=== PATIENT | female | born 1990 | race Caucasian/White ===

== ENCOUNTER 2020-03-04 11:17 | Emergency (ER) | payer OTHER ==
[~2020-03-04] VITALS: Ht 157.5 cm; Wt 53.7 kg
[2020-03-04 12:12] LABS: BASO % 0.2 % (0.0-1.0); EOS # 0.1 10^3/uL (0.0-0.5); EOS % 0.8 % (0.0-3.0); HEMATOCRIT 41.5 % (36.0-47.0); HEMOGLOBIN 13.9 g/dl (12.0-15.5); LYMPH # 1.7 10^3/uL (1.5-5.0); MEAN CORPUSCULAR HEMOGLOBIN 30.9 pg (27.0-33.0); MEAN CORPUSCULAR HGB CONC 33.5 g/dl (32.0-36.5); MEAN CORPUSCULAR VOLUME 92.2 fl (80.0-96.0); MONO # 0.5 10^3/uL (0.0-0.8); MONO % 5.5 % (0.0-5.0); NEUTROPHILS % 75.3 % (36.0-66.0); PLATELET COUNT, AUTOMATED 201 10^3/uL (150-450); WHITE BLOOD COUNT 9.2 10^3/uL (4.0-10.0)
[2020-03-04 13:04] LABS: BLOOD UREA NITROGEN 7 MG/DL (7-18); CARBON DIOXIDE LEVEL 26 MEQ/L (21-32); CHLORIDE LEVEL 103 MEQ/L (98-107); CREATININE FOR GFR 0.67 MG/DL (0.55-1.30); GLOMERULAR FILTRATION RATE > 60.0 (>60); GLUCOSE, FASTING 85 MG/DL (70-100); HCG, SERUM QUANTITATIVE 129892 MIU/ML; POTASSIUM SERUM 4.2 MEQ/L (3.5-5.1); SODIUM LEVEL 134 MEQ/L (136-145)
[2020-03-04] MEDS ORDERED: KEFL500C17 PO (13:29)
[2020-03-04 13:39] VITALS: BP 112/79
--- NOTE | 2020-03-04 16:08 | REP ---
FIRST TRIMESTER ULTRASOUND: Real-time sonographic evaluation of the pelvis performed utilizing transabdominal technique. There is a single living intrauterine gestation. The estimated gestational age is 10 weeks 3 days based on crown-rump length of 35 mm, EDC 09/27/2020. heart rate is 179 beats per minute. There is no subchorionic hemorrhage. Ovaries are normal in size and echotexture with no mass or torsion. There is no free fluid. Electronically Signed by Nick Stafford MD 03/04/2020 07:52 P
== END 2020-03-04 13:40 | disposition home or self-care (01) ==
LOC: M ED 11:17
DX: O23.40 Unspecified infection of urinary tract in pregnancy, unspecified trimester (principal); R82.71 Bacteriuria; Z3A.10 10 weeks gestation of pregnancy

== ENCOUNTER 2020-05-22 18:31 | Emergency (ER) | payer BC, OTHER ==
[~2020-05-22] VITALS: Ht 157.5 cm; Wt 54.3 kg
[~2020-05-22 18:31] MED LIST: KEFL500C17 PO
[2020-05-22 18:33] VITALS: BP 108/72
[2020-05-22 21:59] LABS: HCG, SERUM QUALITATIVE POSITIVE (NEGATIVE)
[2020-05-22 22:00] LABS: ALBUMIN 2.6 GM/DL (3.2-5.2); ALT/SGPT 8 U/L (12-78); BILIRUBIN,DIRECT 0.1 MG/DL (0.0-0.2); BILIRUBIN,TOTAL 0.3 MG/DL (0.2-1.0); BLOOD UREA NITROGEN 5 MG/DL (7-18); CALCIUM LEVEL 8.2 MG/DL (8.5-10.1); CARBON DIOXIDE LEVEL 27 MEQ/L (21-32); CHLORIDE LEVEL 106 MEQ/L (98-107); CREATININE FOR GFR 0.52 MG/DL (0.55-1.30); GLOMERULAR FILTRATION RATE > 60.0 (>60); GLUCOSE, FASTING 72 MG/DL (70-100); LIPASE 65 U/L (73-393); POTASSIUM SERUM 3.7 MEQ/L (3.5-5.1); SODIUM LEVEL 139 MEQ/L (136-145); TOTAL PROTEIN 5.9 GM/DL (6.4-8.2)
== END 2020-05-22 20:54 | disposition admitted as inpatient to this hospital (09) ==
LOC: M ED 18:31
DX: O99.89 Other specified diseases and conditions complicating pregnancy, childbirth and the puerperium (principal); O99.612 Diseases of the digestive system complicating pregnancy, second trimester; R11.10 Vomiting, unspecified; M54.89 Other dorsalgia; Z3A.22 22 weeks gestation of pregnancy

== ENCOUNTER 2020-05-22 19:53 | Outpatient (CLI) | payer BC, OTHER ==
[~2020-05-22] VITALS: Ht 157.5 cm; Wt 54.5 kg
[2020-05-22 20:19] VITALS: BP 124/83
[2020-05-22 21:18] LABS: BASO % 0.1 % (0.0-1.0); EOS % 0.3 % (0.0-3.0); HEMATOCRIT 31.6 % (36.0-47.0); HEMOGLOBIN 10.6 g/dl (12.0-15.5); LYMPH # 1.1 10^3/uL (1.5-5.0); LYMPH % 15.1 % (24.0-44.0); MEAN CORPUSCULAR HEMOGLOBIN 31.5 pg (27.0-33.0); MEAN CORPUSCULAR HGB CONC 33.5 g/dl (32.0-36.5); MONO # 0.4 10^3/uL (0.0-0.8); NEUTROPHILS # 5.5 10^3/uL (1.5-8.5); NEUTROPHILS % 79.2 % (36.0-66.0); PLATELET COUNT, AUTOMATED 178 10^3/uL (150-450); RED BLOOD COUNT 3.36 10^6/uL (4.00-5.40)
[2020-05-22 22:37] LABS: HEPATITIS C VIRUS ABY INDEX 0.1 INDEX (<0.8); HIV 1&2 SCREEN CENTAUR NEGATIVE (NEGATIVE)
== END 2020-05-22 22:25 | disposition home or self-care (01) ==
LOC: M LDO 19:53
PROVIDERS: ATTEND Specialist
DX: O99.89 Other specified diseases and conditions complicating pregnancy, childbirth and the puerperium (principal); O99.612 Diseases of the digestive system complicating pregnancy, second trimester; R11.10 Vomiting, unspecified; M54.89 Other dorsalgia; Z3A.22 22 weeks gestation of pregnancy; O26.892 Other specified pregnancy related conditions, second trimester

== ENCOUNTER → 2020-06-06 | Outpatient (CLI) | payer BC, OTHER ==
--- NOTE | 2020-06-11 15:15 | REP ---
OB ULTRASOUND HISTORY: anatomy evaluation. TECHNIQUE: Real-time sonographic evaluation of the gravid uterus is performed. FINDINGS: There is single living intrauterine gestation. The estimated gestational age is reportedly 23 weeks 5 days, estimated date of confinement (EDC) 09/28/2020. Todays measurements indicate suboptimal growth with possible asymmetric intrauterine growth restriction. BIOMETRY AND GROWTH: BPD 55 mm 22 weeks 5 days 24th percentile HC 207 mm 22 weeks 6 days 23rd percentile AC 154 mm 20 weeks 4 days Less than 5th percentile Femur length 38 mm 22 weeks 1 day 10th percentile AC/HC ratio 1.34 Above normal 1.03 to 1.22 Estimated weight 428 grams Less than 3rd percentile position is transverse with head toward the maternal left side. Placenta is posterior and grade 0 with no previa or abruption. Cord insertion at the placenta is in the mid aspect of the placenta. A three-vessel umbilical cord is noted. heart rate is 144 beats per minute. Amniotic fluid appears within normal limits for gestational age. Cervix is closed and measures 3 cm in length. Visualized anatomy includes lateral ventricles, posterior fossa, facial structures, four chamber heart, stomach, cord insertion, kidneys, bladder, and spine, which are all grossly unremarkable. Ventricular outflow tracts are not well seen due to position. MTDD
== END ==
LOC: M WHC 10:12
PROVIDERS: ATTEND Specialist
DX: Z34.82 Encounter for supervision of other normal pregnancy, second trimester (principal); Z3A.23 23 weeks gestation of pregnancy

== ENCOUNTER → 2020-06-24 | Outpatient (REF) | payer BC | LOC: M SFHCWAGY 10:20 | PROVIDERS: ATTEND Specialist | DX: Z34.82 Encounter for supervision of other normal pregnancy, second trimester (principal) ==

== ENCOUNTER → 2020-07-18 | Outpatient (CLI) | payer MEDICAID ==
--- NOTE | 2020-07-18 17:44 | REP ---
INDICATION: F/U ANATOMY COMPARISON: 06/06/2020 TECHNIQUE: Transabdominal obstetrical ultrasound with color Doppler evaluation. FINDINGS: Examination demonstrates a single live intrauterine in cephalic presentation. motion is identified by technologist. Placenta is noted posterior and grade 1 without evidence for placenta previa or abruption. Amniotic fluid volume is normal. Cervix measures 3.8 cm in length and appears closed.. Gestational age by LMP 28 weeks 1 day with IVIS 10/09/2020. Gestational age by current measurements 28 weeks 1 day with IVIS 10/09/2020. FHR equals 139 beats per minute. Estimated weight 1146 grams (31stpercentile). Anatomical assessment demonstrates normal structures including cranium, facial features, lungs, four-chamber heart/ventricular outflow tracts, diaphragm, stomach, three-vessel cord, and kidneys/bladder. IMPRESSION: Single live intrauterine in cephalic presentation demonstrating appropriate estimated weight and growth. In conjunction with prior examination anatomical assessment is complete and normal. <Electronically signed by Johan Madrid > 07/18/20 [id number]
== END ==
LOC: M WHC 14:33
PROVIDERS: ATTEND Specialist
DX: Z34.82 Encounter for supervision of other normal pregnancy, second trimester (principal); Z3A.28 28 weeks gestation of pregnancy

== ENCOUNTER → 2020-07-31 | Outpatient (REF) | payer BC ==
[2020-07-31 17:08] LABS: HEMATOCRIT 33.2 % (36.0-47.0); HEMOGLOBIN 10.7 g/dl (12.0-15.5); MEAN CORPUSCULAR HGB CONC 32.2 g/dl (32.0-36.5); MEAN CORPUSCULAR VOLUME 99.4 fl (80.0-96.0); PLATELET COUNT, AUTOMATED 171 10^3/uL (150-450); RED BLOOD COUNT 3.34 10^6/uL (4.00-5.40); WHITE BLOOD COUNT 7.7 10^3/uL (4.0-10.0)
== END ==
LOC: M PLALAB 15:35
PROVIDERS: ATTEND Specialist
DX: Z34.82 Encounter for supervision of other normal pregnancy, second trimester (principal)

== ENCOUNTER → 2020-09-08 | Outpatient (REF) | payer OTHER | LOC: M SFHCWAGY 09:57 | PROVIDERS: ATTEND Specialist | DX: Z34.83 Encounter for supervision of other normal pregnancy, third trimester (principal); Z3A.00 Weeks of gestation of pregnancy not specified ==

== ENCOUNTER 2020-10-03 14:27 | Inpatient (IN) | payer BC, OTHER ==
[~2020-10-03] VITALS: Ht 154.9 cm; Wt 60.0 kg
[2020-10-03] VITALS (12 sets, daily range): BP systolic 102–132; BP diastolic 64–86
[2020-10-03] MEDS: LR 1,000 ML IV SCH (05:40)
[2020-10-03] MEDS ORDERED: MULTTAB20 PO (14:52)
[2020-10-03 15:39] LABS: HEMATOCRIT 32.6 % (36.0-47.0); HEMOGLOBIN 10.5 g/dl (12.0-15.5); MEAN CORPUSCULAR HEMOGLOBIN 29.7 pg (27.0-33.0); MEAN CORPUSCULAR HGB CONC 32.2 g/dl (32.0-36.5); MEAN CORPUSCULAR VOLUME 92.1 fl (80.0-96.0); PLATELET COUNT, AUTOMATED 199 10^3/uL (150-450); RED BLOOD COUNT 3.54 10^6/uL (4.00-5.40); WHITE BLOOD COUNT 7.9 10^3/uL (4.0-10.0)
[2020-10-03 16:09] LABS: AMPHETAMINES LEVEL URINE NEGATIVE (NEGATIVE); BARBITURATES URINE NEGATIVE (NEGATIVE); BENZODIAZEPINES URINE NEGATIVE (NEGATIVE); CANNABINOIDS URINE NEGATIVE (NEGATIVE); COCAINE METABOLITE URINE NEGATIVE (NEGATIVE); METHADONE URINE NEGATIVE (NEGATIVE); OPIATES URINE NEGATIVE (NEGATIVE); PHENCYCLIDINE URINE NEGATIVE (NEGATIVE)
[2020-10-03] MEDS ORDERED: LR 1,000 ML IV SCH (16:36)
[2020-10-03] MEDS ORDERED: LACTATED RINGER'S 1000 ML IV STA (16:36)
[2020-10-03] MEDS ORDERED: OXYTOCIN DRIP 30 UNITS in IV 1 EA IV SCH ×2 (16:45→23:23)
--- NOTE | 2020-10-03 16:54 | HPEPDOC ---
Obstetrical History & Physical General Date of Admission Oct 03, 2020 at 14:27 History of Present Illness Chief Complaint: Induction of labor, Other (postdates) Age: 30 : 4 Term: 2 Pre-term: 0 Abortions: 1 Livin Care Care: Limited Care (late entry to care, noncompliance) Dating Final EDC by: 1st trimester (US) EGA at Admission: 40 (+6) Antepartum Course Admission Weight (lbs.): 130.4 Past Medical History Past Obstetrical History #1: Past Obstetrical History: Primgravida (2012) Type of Delivery: Spontaneous Vaginal Del. Sex of : Male Complications: No (doesn't have custody) Past Obstetrical History #2: Past Obstetrical History: Multigravida (2013) Type of Delivery: Spontaneous Vaginal Del. 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 BREAST: . ABDOMEN: Gravid and non-tender to touch. FETUS: Is vertex (VTX) by sterile vaginal examination (SVE), fetus is vertex (VTX) by Thang. EFW 6# HEART RATE: Regular rate and rhythm. LUNGS: Clear to auscultation (CTA). EXTREMITIES: No edema. No clonus. Deep tendon reflexes (DTRs) + 2. Vital Signs/I&O Vital Signs Date Time Temp Pulse Resp B/P (MAP) Pulse Ox O2 Delivery O2 Flow Rate FiO2 10/03/20 16:27 81 102/73 (83) 10/03/20 14:58 98.4 18 Laboratory Data 24H LABS Laboratory Tests 2 10/03/20 14:31: Serology Scanned Report Hepatitis B Testing 10/03/20 15:31: Nucleated Red Blood Cells % (auto) 0.0, Urine Opiates Screen NEGATIVE, Urine Methadone Screen NEGATIVE, Urine Barbiturates Screen NEGATIVE, Urine Phencyclidine Screen NEGATIVE, Urine Amphetamines Screen NEGATIVE, Urine Benzodiazepines Screen NEGATIVE, Urine Cocaine Metabolite Screen NEGATIVE, Urine Cannabinoids Screen NEGATIVE, Syphilis Serology NONREACTIVE CBC/BMP Laboratory Tests 10/03/20 15:31 Pertinent Laboratoy Data Blood Type: O- RBC Antibody Screen: Negative HIV: Negative Hepatitis B: Negative Hepatitis C: Negative Rapid Plasma Reagin: Nonreactive Rubella: Immune Chlamydia/Gonorrhea: Negative Group B Streptococcus: Negative Glucose Tolerance Test: 174 (never did 3hr GTT as ordered) Anatomy Ultrasound Ultrasound Date: Jun 06, 2020 Placenta Location: Posterior Normal Anatomy: Yes Placenta Previa: No Estimated Weight (grams): 428 (<3%, possible assymetric growth restriction) Other Ultrasounds 03/04/2020 dating 10w3d IVIS 09/27/2020 07/18/2020 EGA 28w1d . wrong IVIS noted on sono. Steroid Therapy Steroid Therapy: No Vaginal Examination Dilation: 4 cm Effacement: 80% Station: -3 Cervical Consistency: Soft Cervical Position: Posterior Presentation: Cephalic presentation Assessment Heart Rate (FHR): 120 Variability: Moderate Accelerations: Positive Decelerations: None Tocometer Contractions: Yes Frequency: irregular (irritability) Strength: palpated as mild Assessment/Plan Assessment Gisselle is a 30-year-old (G)4 para (P)2-0-1-2 at 40+6 weeks by 10-week ultrasound. Presents to Labor and Delivery (L&D) induction of labor due to postdates. Denies LOF, bleeding or regular UC. Reports good activity. has been complicated by poor compliance with care. Most recent growth sono utilized incorrect IVIS for growth, off by 12 days. Concerns for IUGR. 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 Diet: regular then clear liquids. Group B Streptococcus (GBS) negative. Labs and intravenous (IV) per unit protocol. Counseled on Pitocin and induction of labor (IOL). Lactated Ringers (LR): Bolus 500 mL, then at 125 mL/hr. Plans to labor ad sarkis Anticipate normal spontaneous delivery () C-S as appropriate. Nathaly Mukherjee CNMb 5, 2021 16:54
--- NOTE | 2020-10-03 21:44 | IPNPDOC ---
Text Note Date of Service The patient was seen on 10/03/20. NOTE Progress UC irregular, mild, 3-5 minutes apart Pt reports feeling them a bit more Cat I tracing Pitocin @ 8mu SVE - malpresentation. Bedside sono shows breech presentation now, head in maternal RUQ Pitocin off. Dr Winter requested to attend and evaluate VS,Fishbone, I+O VS, Fishbone, I+O Laboratory Tests 10/03/20 15:31 Vital Signs Date Time Temp Pulse Resp B/P (MAP) Pulse Ox O2 Delivery O2 Flow Rate FiO2 10/03/20 20:32 90 16 109/80 (90) 10/03/20 19:32 98.3 Nathaly Mukherjee CNM Oct 03, 2020 21:44
[2020-10-03] MEDS ORDERED: TERBUTALINE SULFATE 1 MG/ML VIAL (J3105) SC ONE (22:15)
[2020-10-03] MEDS ORDERED: AZITHROMYCIN INJ 500 MG, VIAL MATE ADAPTER 1 EACH in D5W 250 ML IV ONE (23:00)
[2020-10-03] MEDS ORDERED: ceFAZolin SOD 2 GM in IV 1 EA IV ONE (23:00)
[2020-10-03] MEDS ORDERED: BICITRA 30ML SOLN UDC PO ONE (23:00)
[2020-10-03] MEDS ORDERED: MORPHINE PRES-FREE INJ 10 MG/10 ML VIAL (J2274) As Ordered ONE (23:04)
[2020-10-03] MEDS ORDERED: OXYTOCIN INJ 10 UNITS/ML VIAL (J2590) As Ordered ONE (23:05)
[2020-10-03] MEDS ORDERED: ONDANSETRON 4MG/2ML VIAL As Ordered ONE (23:06)
[2020-10-03] MEDS ORDERED: KETOROLAC 60MG 2ML VIAL As Ordered ONE (23:06)
[2020-10-03] MEDS ORDERED: ONDANSETRON 4MG/2ML VIAL IV PRN (23:30)
[2020-10-03] MEDS ORDERED: RHOGAM 300 MCG (1500 IU) INJ (J2790) IM SCH (23:30)
[2020-10-03] MEDS ORDERED: MEASLES,MUMPS,RUBELLA VACCINE INJ (MMR-II) (90707) SC SCH (23:30)
[2020-10-03] MEDS ORDERED: MOM 30ML SUSPENSION UDC PO PRN (23:30)
[2020-10-03] MEDS ORDERED: PERCOCET 5MG/325MG TAB PO PRN ×2 (23:30)
--- NOTE | 2020-10-03 23:38 | ROOPDOC ---
[facility] Report Of Operation Report of Operation DATE OF PROCEDURE: 10/03/20 SURGEON: Tia Winter M.D. STONE CUTTER: None PROCEDURE: [Primary] section PREOPERATIVE DIAGNOSIS: 1.[Breech] POSTOPERATIVE DIAGNOSIS: 1.[Breech] ANESTHESIA: [Spinal] ESTIMATED BLOOD LOSS: [500] mL URINE OUTPUT: [100] mL INTRAVENOUS FLUIDS:[1200] mL of lactated Ringer's solution PREOPERATIVE ANTIBIOTICS:. [2 g of Ancef][500 azithromycin ] OPERATIVE FINDINGS: Liveborn female infant, Apgars [9 and 9]. Weight [ ] SPECIMENS: [None] DESCRIPTION OF PROCEDURE: After informed consent was obtained and written con sent was reviewed. The patient was brought to the operating room[ where spinal anesthesia was placed]. She was then placed in the supine position with a left lateral tilt. Morrison catheter was placed and to gravity. Patient was then prepped and draped in the normal sterile fashion. A timeout operating room was performed identifying the patient, procedure be performed as well as drug allergies. Anesthesia was tested and deemed to be adequate. Pfannenstiel skin incision was made and this was carried down to the underlying rectus fascia. The fascia was then scored and this incision was extended bilaterally. The fascia was then dissected off the underlying rectus muscle superiorly and inferiorly. The rectus muscles were then in the midline. The peritoneum is then entered. Vesicouterine peritoneum was then tented and excised and a bladder flap was created. Mobius retractor was then placed. Next, a curvilinear incision was then made in the lower uterine segment. Amniotomy was performed, productive, clear fl uid. breech brought to level incision. Delivered shoulders delivered. The was then delivered down to the level of the scapula where the upper extremities delivered followed by head. The cord was clamped x2. The was brought over to the warmer with a good cry. Placenta was drained and delivered grossly intact. The uterus was cleared of all clots and debris and the uterine incision was then closed using 0 Vicryl in a running locking fashion followed second layer using 0 Vicryl in a nonlocking fashion for imbrication. The abdomen suctioned. Surgical sites reinspected and noted be hemostatic. The retractor was then removed. The anterior peritoneum was then reapproximated with 3-0 Vicryl. The fascia was then closed using 0 Vicryl in a running nonlocking fashion. The subcutaneous tissues was then irrigated and suctioned. Subcutaneous tissue was reapproximated using 3-0 Vicryl. Several subdermal stitch is placed using 3-0 Vicryl and the skin was closed with 4-0 Monocryl and subcuticular fas hion. This incision was then cleaned and dried and was dressed. The patient was then taken to recovery in stable condition. All counts were correct. The couple has decided to name the [ ]. TIA WINTER MD. Oct 03, 2020 23:38
[2020-10-03] MEDS ORDERED: PHENYLephrine 500MCG 5ML (100MCG/ML) SYRINGE As Ordered ONE (23:40)
[2020-10-04] VITALS (23 sets, daily range): BP systolic 101–135; BP diastolic 55–79
[2020-10-04] MEDS ORDERED: ONDANSETRON 4MG/2ML VIAL IV PRN ×2 (01:45)
[2020-10-04] MEDS ORDERED: NALBUPHINE HCL 10 MG/ML AMP (J2300) IV PRN ×2 (01:45)
[2020-10-04] MEDS ORDERED: diphenhydrAMINE 50MG/ML VIAL (J1200) IV PRN (01:45)
[2020-10-04] MEDS ORDERED: METOCLOPRAMIDE INJ 10MG/2ML VIAL (J2765 PER 1) IV PRN (01:45)
[2020-10-04] MEDS ORDERED: NALOXONE INJ 0.4MG/1ML VIAL (J2310 PER 1MG) IV PRN ×2 (01:45)
[2020-10-04] MEDS ORDERED: HYDROMORPHONE HCL 0.5 MG/ 0.5 ML SYRINGE (J1170 PER 1) IV PRN (01:45)
[2020-10-04] MEDS ORDERED: oxyCODONE 5MG TAB PO PRN (01:45)
[2020-10-04] MEDS ORDERED: MEPERIDINE INJ 25 MG/ML VIAL (J2175) IV PRN (01:45)
[2020-10-04] MEDS ORDERED: fentaNYL 100 MCG/2 ML INJECTION (J3010) IV PRN (01:45)
[2020-10-04] MEDS ORDERED: ONDANSETRON 4MG/2ML VIAL As Ordered ONE ×2 (01:48→02:16)
[2020-10-04] MEDS ORDERED: METOCLOPRAMIDE INJ 10MG/2ML VIAL (J2765 PER 1) As Ordered ONE (02:16)
[2020-10-04] MEDS ORDERED: ONDANSETRON 4MG/2ML VIAL IV ONE (02:45)
[2020-10-04] MEDS: KETOROLAC 30 MG/ML 1ML VIAL IV SCH ×3 (05:32→17:17)
[2020-10-04 07:01] LABS: HEMATOCRIT 27.5 % (36.0-47.0); HEMOGLOBIN 8.8 g/dl (12.0-15.5); MEAN CORPUSCULAR HEMOGLOBIN 29.9 pg (27.0-33.0); MEAN CORPUSCULAR VOLUME 93.5 fl (80.0-96.0); PLATELET COUNT, AUTOMATED 141 10^3/uL (150-450); RED BLOOD COUNT 2.94 10^6/uL (4.00-5.40); WHITE BLOOD COUNT 9.8 10^3/uL (4.0-10.0)
[2020-10-04] MEDS: LR 1,000 ML IV SCH (07:23)
[2020-10-04] MEDS: DOCUSATE SODIUM 100MG CAPSULE PO SCH ×2 (08:08→19:41)
[2020-10-04] MEDS: PRENATAL VITAMINS CHEWABLE TABLET PO SCH (08:09)
--- NOTE | 2020-10-04 10:45 | IPNPDOC ---
Progress Note Date of Service: Oct 04, 2020 Day#: 1 Progress Note SUBJECT: Doing well without complaints. Ambulating, pain is well-controlled. Reports minimal lochia. OBJECTIVE: VITAL SIGNS: Within normal limits, afebrile. Alert and oriented times three. Abdomen: Fundus firm at U-2. Soft, NTTP. Incision: dressed Ext: neg calf tenderness. ASSESSMENT: /postoperative day #1 status post delivery. Recovering in stable condition. PLAN: 1. Continue routine /postoperative care 2. Discharge plans for tomorrow VS, I&O, 24H, Fishbone Vital Signs/I&O Vital Signs Date Time Temp Pulse Resp B/P (MAP) Pulse Ox O2 Delivery O2 Flow Rate FiO2 10/04/20 09:54 98.3 65 14 115/68 (84) 97 Room Air I&O- Last 24 Hours up to 6 AM 10/04/20 06:00 Intake Total 625 ml Output Total 700 ml Balance -75 ml Laboratory Data 24H LABS Laboratory Tests 2 10/03/20 14:31: Serology Scanned Report Hepatitis B Testing 10/03/20 15:31: Nucleated Red Blood Cells % (auto) 0.0, Urine Opiates Screen NEGATIVE, Urine M ethadone Screen NEGATIVE, Urine Barbiturates Screen NEGATIVE, Urine Phencyclidine Screen NEGATIVE, Urine Amphetamines Screen NEGATIVE, Urine Benzodiazepines Screen NEGATIVE, Urine Cocaine Metabolite Screen NEGATIVE, Urine Cannabinoids Screen NEGATIVE, Syphilis Serology NONREACTIVE 10/04/20 06:34: Nucleated Red Blood Cells % (auto) 0.0 CBC/BMP Laboratory Tests 10/03/20 15:31 10/04/20 06:34 MIGUEL SMILEY MD. Oct 04, 2020 10:45
[2020-10-05] MEDS: IBUPROFEN 800 MG TAB PO SCH ×2 (01:52→09:47)
[2020-10-05 01:56] VITALS: BP 110/68
[2020-10-05 05:49] VITALS: BP 123/60
--- NOTE | 2020-10-05 07:12 | DS.PDOC ---
Discharge Summary General Date of Admission Oct 03, 2020 at 14:27 Date of Discharge 10/05/2020 Discharge Summary PROCEDURES PERFORMED DURING STAY: 1. Spinal anesthesia 2. section. ADMITTING DIAGNOSES: 1. Induction labor for postdates. DISCHARGE DIAGNOSES: 1. Breech presentation status post primary section. COMPLICATIONS/CHIEF COMPLAINT: Induction. HISTORY OF PRESENT ILLNESS: This patient is a 30-year-old 4 para 2 who presented for induction labor. During her evaluation she was noted to have a breech presentation and this was confirmed with ultrasound. There was an attempt for external cephalic version patient declined further attempts and instead opted for section for breech presentation. Patient did well following her section blood loss was 500 mL. Patient did well postoperatively by postoperative day #2 had met all discharge criteria is as discharged home in stable condition. DISCHARGE MEDICATIONS: Please see below. ALLERGIES: Please see below. PHYSICAL EXAMINATION ON DISCHARGE: VITAL SIGNS: Please see below. GENERAL: Well-appearing no acute distress ABDOMINAL EXAMINATION: Soft, appropriately tender. Incision was dressed EXTREMITIES: Negative for calf tenderness NEUROLOGICAL EXAMINATION: Grossly intact PSYCHIATRIC EXAMINATION: Appropriate LABORATORY DATA: Please see below. ACTIVITY: As tolerated. DIET: Regular DISCHARGE PLAN: Home DISCHARGE INSTRUCTIONS: 1. Remove dressing in 5-7 days 2. Remain on pelvic rest for 6 weeks 3. Reports severe pain, heavy vaginal bleeding, fever or incisional issues. DISCHARGE CONDITION: Stable. Vital Signs/I&Os Vital Signs Date Time Temp Pulse Resp B/P (MAP) Pulse Ox O2 Delivery O2 Flow Rate FiO2 10/05/20 05:49 97.7 94 16 123/60 (81) 97 Room Air I&O- Last 24 Hours up to 6 AM 10/05/20 06:00 Intake Total 360 ml Output Total 1275 ml Balance -915 ml Discharge Medications Scheduled No122/Iron/Folic Acid ( Multi Tablet) 1 Each Tablet, 1 TAB PO DAILY, (Reported) Allergies Coded Allergies: No Known Allergies (Unverified , 03/04/20) MIGUEL SMILEY MD. Oct 05, 2020 07:12
[2020-10-05] MEDS ORDERED: IBUP80TA PO (07:13)
[2020-10-05] MEDS ORDERED: PERCOCET PO (07:13)
[2020-10-05] MEDS: DOCUSATE SODIUM 100MG CAPSULE PO SCH (08:26)
[2020-10-05] MEDS: PRENATAL VITAMINS CHEWABLE TABLET PO SCH (08:26)
[2020-10-05] MEDS ORDERED: INFLUENZA QUADRIVALENT PF VACCINE 0.5ML SYRINGE IM ONE (09:00)
[2020-10-05] MEDS ORDERED: BOOSTRIX/ADACEL VACCINE (DIPHTH/PERTUSS/ACELL/TETANUS) 0.5ML SYR IM ONE (09:00)
== END 2020-10-05 16:20 | disposition home or self-care (01) | DRG 540 ==
LOC: M LDI 14:27 → M OBS 10-04 03:25
PROVIDERS: ADMIT Advanced Practice Midwife; ATTEND Advanced Practice Midwife
PROC: 10D00Z1 Extraction of Products of Conception, Low, Open Approach (ICD-10-PCS; principal; 2020-10-03 23:21)
DX: O48.0 Post-term pregnancy (principal); O32.1XX0 Maternal care for breech presentation, not applicable or unspecified; Z37.0 Single live birth; Z3A.40 40 weeks gestation of pregnancy; Z91.19 Patient's noncompliance with other medical treatment and regimen; O09.30 Supervision of pregnancy with insufficient antenatal care, unspecified trimester

== ENCOUNTER → 2021-05-28 | Outpatient (REF) | payer OTHER ==
[~2021-05-28] MED LIST changes: +IBUP80TA PO; +MULTTAB20 PO; +PERCOCET PO
== END ==
LOC: M LAB REF 21:22
PROVIDERS: ATTEND Physician Assistant
DX: N39.0 Urinary tract infection, site not specified (principal)

== ENCOUNTER 2021-07-11 22:19 | Emergency (ER) | payer OTHER ==
[~2021-07-11] VITALS: Ht 157.5 cm; Wt 57.1 kg
--- OUTSIDE RECORDS SUMMARY | 2021-07-11 22:23 | CCD | Continuity of Care Document ---
Author Author Gisselle KOENIG Organization Unknown Address [address] [place] [address] [place] [address] Phone [phone] Care Team Providers Care Pecan Picker Name Role Phone No PCP AUTM Unavailable Problems Description No Information Available Social History Type Date Description Comments Sex Unknown ETOH Use Denies alcohol use Tobacco Use Start: Unknown Patient has never smoked Smoking Status Reviewed: 05/28/21 Patient has never smoked Allergies, Adverse Reactions, Alerts Description No Known Drug Allergies Medications Active Medications SIG Qnty Indications Ordering Provide r Date Macrobid 100mg Capsules 1 cap by mouth twice a day for 5 days with food 10caps N39.0 Marito bravo JR., M.D. 05/28/2021 History Medications No Active Medications Marito lopez JR., M.D. 05/28/2021 - 05/28/2021 Pyridium 200mg Tablets 1 tab by mouth three times a day after meals for 2 days 6tabs N39.0 Marito Pierce JR., M.D. 05/28/2021 - 05/30/2021 Immunizations Description No Information Available Vital Signs Date Vital Result Comment 05/28/2021 5:13pm BP Systolic 114 mmHg BP Diastolic 83 mmHg Heart Rate 97 /min Respiratory Rate 18 /min O2 % BldC Oximetry 98 % Body Temperature 98.2 F Pain Level 5 Results Test Acquired Date Facility Test Result H/L Range Note Laboratory test finding 05/28/2021 [facility] [address] [place] [address] [phone] Urine Culture FULL REPORT IN L <SEE NOTE> Normal 1, 2 1 Rx Macrobid 2 FULL REPORT IN LAB NOTES (eC W and [facility]). ORGANISM 1: ESCHERICHIA COLI COLONY COUNT >100,000 ORGANISM 1: ESCHERICHIA COLI ESCHERICHIA COLI: REACTION TRIMETHOPRIM/SULFAMETHOXAZOLE IV 160mg TMP & 800mg SMXq6h <=20 S TRIMETHOPRIM/SULFAMETHOXAZOLE PO Bactrim DS Bid <=20 S AMPICILLIN IV 500mg q6h >=32 R AMPICILLIN PO 500mg q6h fasting >=32 R GENTAMICIN IV 80mg q8h <=1 S NITROFURANTOIN PO 100mg BID <=16 S CEFAZOLIN IV 1gm q8h <=4 S LEVOFLOXACIN IV 500mg qd <=0.12 S LEVOFLOXACIN PO 250mg qd <=0.12 S LEVOFLOXACIN PO 500mg qd <=0.12 S TOBRAMYCIN IV 80mg q8h <=1 S CEFTRIAXONE IV 1gm q24h <=1 S CEFTAZIDIME IV 1gm q8h <=1 S AMPICILLIN/SULBACTAM IV 1.5g q6h 4 S PIPERACILLIN/TAZOBACTAM IV 2.25 gm q6h <=4 S AZTREONAM IV 1gm q8h <=1 S ERTAPENEM IV 1gm qd <=0.5 S MEROPENEM IV 1 gm q8h <=0.25 S MEROPENEM IV 500 mg q8h <=0.25 S TIGECYCLINE IV 50mg q12h <=0.5 S CEFEPIME IV 1 gm q12h <=1 S CEFEPIME IV 2 gm q12h <=1 S EXTD BRD SPCTRM BETA LACTAMASE IV NEGATIVE FOR ESBL Procedures Date Code Description Status 05/28/2021 [id number] Office/Outpatient [facility] 30 -44 Minutes Completed Medical Devices Description No Information Available Encounters Type Date Location Provider Dx Diagnosis Office Visit 05/28/2021 2:20p Main Office Michelet Martinez N3 9.0 Urinary tract infection, site not specified Assessments Date Code Description Provider 05/28/2021 N39.0 Urinary tract infection, site no t specified Michelet Martinez Plan of Treatment No Information Available Functional Status Description No Information Available Mental Status Description No Information Available Referrals Description No Information Available
--- OUTSIDE RECORDS SUMMARY | 2021-07-11 22:23 | CCD | Continuity of Care Document ---
Author Author Gisselle KOENIG Organization Unknown Address [address] [place] [address] [place] [address] Phone [phone] Care Team Providers Care Tool And Die Maker Level Five Name Role Phone No PCP AUTM Unavailable [...] 10caps N39.0 Marito bravo JR., M.D. 05/28/2021 Pyridium 200mg Tablets 1 tab by mouth three times a day after meals for 2 days 6tabs N39.0 Marito Pierce JR., M.D. 05/28/2021 History Medications No Active Medications Marito lopez JR., M.D. 05/28/2021 - 05/28/2021 Immunizations Description No Information Available Vital Signs Date Vital Result Comment 05/28/2021 5:13pm BP Systolic 114 mmHg BP Diastolic 83 mmHg Heart Rate 97 /min Respiratory Rate 18 /min O2 % BldC Oximetry 98 % Body Temperature 98.2 F Pain Level 5 Results Test Acquired Date Facility Test Result H/L Range Note Laboratory test finding 05/28/2021 [facility] [address] [place] [address] [phone] Urine Culture <pending> Procedures Date Code Description Status 05/28/2021 108[address] Office/Outpatient [facility] 30 -44 Minutes Completed Medical [...]
--- OUTSIDE RECORDS SUMMARY | 2021-07-11 22:23 | CCD | Continuity of Care Document ---
Author Author Gisselle KOENIG Organization Unknown Address [address] [place] [address] [place] [address] Phone [phone] Care Team Providers Care Ceo And Founder Name Role Phone No PCP AUTM Unavailable [...] H/L Range Note Laboratory test finding 05/28/2021 [facility] [address] [place] [address] [phone] Urine Culture <pending> Procedures Date Code Description Status 05/28/2021 [address]052 Office/Outpatient [facility] 30 -44 Minutes Completed Medical Devices Description [...]
--- OUTSIDE RECORDS SUMMARY | 2021-07-11 22:23 | CCD ---
Author Author [facility] Organization [facility] Address Unknown Phone Unavailable Care Team Providers Care Business Executive Name Role Phone Lyssa Parry NP Unavailable Unavailable ARYA, ANNABEL PA Unavailable Unavailable ARYA, ANNABEL PA Unavailable Unavailable ARYA, ANNABEL PA Unavailable Unavailable ARYA, ANNABEL PA Unavailable Unavailable ARYA, ANNABEL PA Unavailable Unavailable ARYA, ANNABEL PA Unavailable Unavailable ARYA, ANNBAEL PA Unavailable Unavailable ARYA, ANNABEL PA Unavailable Unavailable ARYA, ANNABEL PA Unavailable Unavailable ARYA, ANNABEL PA Unavailable Unavailable ARYA, ANNABEL PA Unavailable Unavailable ARYA, ANNABEL PA Unavailable Unavailable ARYA, ANNABEL PA Unavailable Unavailable ARYA, ANNABEL PA Unavailable Unavailable ARYA, ANNABEL PA Unavailable Unavailable ARYA, ANNABEL PA Unavailable Unavailable ARYA, ANNABEL PA Unavailable Unavailable ARYA, ANNABEL PA Unavailable Unavailable ARYA, ANNABEL PA Unavailable Unavailable ARYA, ANNABEL PA Unavailable Unavailable ARYA, ANNABEL PA Unavailable Unavailable ARYA, ANNABEL PA Unavailable Unavailable ARYA, ANNABEL PA Unavailable Unavailable ARYA, ANNABEL PA Unavailable Unavailable ARYA, ANNABEL PA Unavailable Unavailable ARYA, ANNABEL PA Unavailable Unavailable ARYA, ANNABEL PA Unavailable Unavailable ARYA, ANNABEL PA Unavailable Unavailable ARYA, ANNABEL PA Unavailable Unavailable ARYA, ANNABEL PA Unavailable Unavailable ARYA, ANNABEL PA Unavailable Unavailable ARYA, ANNABEL PA Unavailable Unavailable ARYA, ANNABEL PA Unavailable Unavailable ARYA, ANNABEL PA Unavailable Unavailable ARYA, ANNABEL PA Unavailable Unavailable ARYA, ANNABEL PA Unavailable Unavailable Re-disclosure Warning The records that you are about to access may contain information from federally-assisted alcohol or drug abuse programs. If such information is present, then the following federally mandated warning applies: This information has been disclosed to you from records protected by federal confidentiality rules (42 CFR part 2). The federal rules prohibit you from making any further disclosure of this information unless further disclosure is expressly permitted by the written consent of the person to whom it pertains or as otherwise permitted by 42 CFR part 2. A general authorization for the release of medical or other information is NOT sufficient for this purpose. The Federal rules restrict any use of the information to criminally investigate or prosecute any alcohol or drug abuse patient.The records that you are about to access may contain highly sensitive health information, the redisclosure of which is protected by Article 27-F of the [facility] Public Health law. If you continue you may have access to information: Regarding HIV / AIDS; Provided by facilities licensed or operated by the [facility] Office of Mental Health; or Provided by the [facility] Office for People With Developmental Disabilities. If such information is present, then the following [facility] mandated warning applies: This information has been disclosed to you from confidential records which are protected by state law. State law prohibits you from making any further disclosure of this information without the specific written consent of the person to whom it pertains, or as otherwise permitted by law. Any unauthorized further disclosure in violation of state law may result in a fine or fdc sentence or both. A general authorization for the release of medical or other information is NOT sufficient authorization for further disc losure. Encounters Encounter Providers Location Date Indications Data Source(s ) Outpatient Attender: Lyssa Parry NP 04/2021 03:11:03 PM EST - 07/07/2021 04:46:07 PM EST [facility] ([facility] ) Outpatient Attender: ANNABEL armstrong 05/28/2021 02:20:00 PM EDT [facility] ([facility] (WC ESTOB) [facility] [address] [place] [address] 10/30/2020 12:00:00 AM EST eCW1 ([facility]) Unknown [address] [facility] [address] 10/13/2020 12:00:00 AM EST eCW1 ([facility]) ( ESTOB) [facility] Est OB [address] [place] [address] 10/01/2020 12:00:00 AM EST eCW1 ([facility]) (WC ESTOB) enter Est OB [address] [place] [address] 09/26/2020 12:00:00 AM EST eCW1 ([facility]) (WC ESTOB) enter Est OB [address] [place] [address] 09/08/2020 12:00:00 AM EST eCW1 ([facility]) (WC ESTOB) [facility] Est OB [address] [place] [address] 07/31/2020 12:00:00 AM EST eCW1 ([facility]) ( ESTOB) enter Est OB [address] [place] [address] 07/11/2020 12:00:00 AM EST eCW1 ([facility]) ( ESTOB) [facility] Est OB [address] [place] [address] 06/24/2020 12:00:00 AM EDT eCW1 ([facility]) Unknown [address] [facility] [address] 06/19/2020 12:00:00 AM EDT eCW1 ([facility]) ( NEWOB) [facility] New OB Visit [address] [place] [address] 06/04/2020 12:00:00 AM EDT eCW1 ([facility]) Immunizations Vaccine Date Status Description Data Source(s) COVID-19 VACCINE Moderna 02/24/2021 12:00:00 AM EDT completed [facility] Vaccine Series Complete: YESThis Data wa s Submitted to [facility] Via [facility]. COVID-19 VACCINE Moderna 01/27/2021 12:00:00 AM EDT completed [facility] Vaccine Series Complete: NOThis Data was Submitted to [facility] Via [facility]. Medications Medication Brand Name Start Date Product Form Dose Route Admi nistrative Instructions Pharmacy Instructions Status Indications Reaction Description Data Source(s) NITROFURANTOIN, MACROCRYSTALS 25 MG / Ni trofurantoin, Monohydrate 75 MG Oral Capsule [Macrobid] Macrobid 05/28/2021 12:00:00 AM EDT ORAL active [facility] ([facility]) No Active Medications 05/28/2021 12:00:00 AM EDT completed [facility] ([facility]) Phenazopyridine hydrochloride 200 MG Oral Tablet [Pyridium] Pyridium 05/28/2021 12:00:00 AM EDT ORAL completed [facility] ([facility]) 28-0.8 MG 28-0.8 MG 09/08/2020 12:00:00 AM EST 1.0 {tablet} active 28-0.8 MG e CW1 ([facility]) 28-0.8 MG 28-0.8 MG 09/08/2020 12:00:00 AM EST 1.0 {tablet} active 28-0.8 MG e CW1 ([facility]) 28-0.8 MG 28-0.8 MG 09/08/2020 12:00:00 AM EST 1.0 {tablet} active 28-0.8 MG e CW1 ([facility]) 28-0.8 MG 28-0.8 MG 09/08/2020 12:00:00 AM EST 1.0 {tablet} active 28-0.8 MG e CW1 ([facility]) 28-0.8 MG 28-0.8 MG 09/08/2020 12:00:00 AM EST 1.0 {tablet} active 28-0.8 MG e CW1 ([facility]) 28-0.8 MG 28-0.8 MG 06/04/2020 12:00:00 AM EDT 1.0 {tablet} active 28-0.8 MG e CW1 ([facility]) 28-0.8 MG 28-0.8 MG 06/04/2020 12:00:00 AM EDT 1.0 {tablet} suspended 28-0.8 MG e CW1 ([facility]) 28-0.8 MG 28-0.8 MG 06/04/2020 12:00:00 AM EDT 1.0 {tablet} suspended 28-0.8 MG e CW1 ([facility]) 28-0.8 MG 28-0.8 MG 06/04/2020 12:00:00 AM EDT 1.0 {tablet} active 28-0.8 MG e CW1 ([facility]) 28-0.8 MG 28-0.8 MG 06/04/2020 12:00:00 AM EDT 1.0 {tablet} suspended 28-0.8 MG e CW1 ([facility]) 28-0.8 MG 28-0.8 MG 06/04/2020 12:00:00 AM EDT 1.0 {tablet} suspended 28-0.8 MG e CW1 ([facility]) 28-0.8 MG 28-0.8 MG 06/04/2020 12:00:00 AM EDT 1.0 {tablet} active 28-0.8 MG e CW1 ([facility]) 28-0.8 MG 28-0.8 MG 06/04/2020 12:00:00 AM EDT 1.0 {tablet} active 28-0.8 MG e CW1 ([facility]) 28-0.8 MG 28-0.8 MG 06/04/2020 12:00:00 AM EDT 1.0 {tablet} active 28-0.8 MG e CW1 ([facility]) 28-0.8 MG 28-0.8 MG 06/04/2020 12:00:00 AM EDT 1.0 {tablet} active 28-0.8 MG e CW1 ([facility]) Insurance Providers Payer name Policy type / Coverage type Policy ID Covered green party ID Covered green party's relationship to mclean Policy M[employer] Plan Information [employer] [id number] Self [id number] [facility] [id number] SP [id number] [facility] [id number] SP [id number] BC BS TRIGON [phone] [id number] SP [id number] [place] [id number] SP [id number] NCO EPALS [id number] SP [id number] O UNAVAILABLE UNAVAILA BLE BCBS [place] [employer] NCO EPALS O [id number] S [id number] Problems, Conditions, and Diagnoses Code Display Name Description Problem Type Effective Dates Data Source(s) Z34.80 care Supervision of other normal P grupo 06/04/2020 12:00:00 AM EDT eCW1 ([facility]) Surgeries/Procedures Procedure Description Date Indications Data Source(s) OFFICE OUTPATIENT NEW 30 MINUTES 05/28/2021 12:00:00 A M EDT [facility] ([facility]) Results ID Date Data Source [id number] 05/28/2021 05:18:00 PM EDT [facility] ([facility]) Name Value Range Interpretation Code Description Data Caitlyn rce(s) Supporting Document(s) Bacteria identified in Urine by Culture Laboratory test result [facility] ([facility]) Rx Macrobid ID Date Data Source CHLAMYDIA & GC DNA PROBES 06/24/2020 12:00:00 AM EDT eCW1 ([facility]) Name Value Range Interpretation Code Description Data Caitlyn rce(s) Supporting Document(s) Negative Negative [facility]CW1 ([facility]) Negative Negative [facility]CW1 [facility]) Procedure Social History Code Duration Value Status Description Data Source(s ) Smoking 05/28/2021 12:00:00 AM EDT Patient has never smoked co mpleted Patient has never smoked [facility] ([facility]) Smoking 10/30/2020 12:00:00 AM EST Never Smoker completed Never S moker eCW1 ([facility]) Smoking 10/01/2020 12:00:00 AM EST Never Smoker completed Never S moker eCW1 ([facility]) Smoking 10/01/2020 12:00:00 AM EST Never Smoker completed Never S moker eCW1 ([facility]) Smoking 10/01/2020 12:00:00 AM EST Never Smoker completed Never S moker eCW1 ([facility]) Smoking 09/17/2020 12:00:00 AM EST Never Smoker completed Never S moker eCW1 ([facility]) Smoking 07/21/2020 12:00:00 AM EST Never Smoker completed Never S moker eCW1 ([facility]) Smoking 07/21/2020 12:00:00 AM EST Never Smoker completed Never S moker eCW1 ([facility]) Smoking 06/30/2020 12:00:00 AM EST Never Smoker completed Never S moker eCW1 ([facility]) Smoking 06/30/2020 12:00:00 AM EST Never Smoker completed Never S moker eCW1 ([facility]) Smoking 06/18/2020 12:00:00 AM EDT Never Smoker completed Never S moker eCW1 ([facility]) Vital Signs ID Date Data Source UNK Name Value Range Interpretation Code Description Data Source(s) Oxygen saturation in Arterial blood by Pulse oximetry 98 % 98 % [facility] ([facility]) Systolic blood pressure 114 mm[Hg] 114 mm[Hg] [facility] ([facility], [facility]) Diastolic blood pressure 83 mm[Hg] 83 mm[Hg] [facility]) Heart rate 97 /min 97 /min [facility] ([facility]) Respiratory rate 18 /min 18 /min [facility] ( [facility], [facility]) Body temperature 98.2 [degF] 98.2 [degF] [facility] ([facility], [facility]) Body weight 119.4 [lb_av] 119.4 [lb_av] eCW1 ([facility]) Body height 62 [in_i] 62 [in_i] W1 ([facility]) Body mass index (BMI) [Ratio] 21.84 kg/m2 21.84 kg/m2 [facility] ([facility]) Systolic blood pressure 110 mm[Hg] 110 mm[Hg] e CW1 ([facility]) Diastolic blood pressure 70 mm[Hg] 70 mm[Hg] eCW1 ([facility]) Body weight 130.4 [lb_av] 130.4 [lb_av] eCW1 ([facility]) Body weight 59.15 kg 59.15 kg eCW1 ([facility]) Body height 62 [in_i] 62 [in_i] eCW1 ([facility]) Body mass index (BMI) [Ratio] 23.85 kg/m2 23.85 kg/m2 eCW1 ([facility]) Systolic blood pressure 110 mm[Hg] 110 mm[Hg] e CW1 ([facility]) Diastolic blood pressure 80 mm[Hg] 80 mm[Hg] eCW1 ([facility]) Body mass index (BMI) [Ratio] 23.594 kg/m2 23.5 94 kg/m2 eCW1 ([facility]) Body weight 129 [lb_av] 129 [lb_av] eCW1 ([facility]) Body weight 58.51 kg 58.51 kg eCW1 ([facility]) Body height 62 [in_i] 62 [in_i] eCW1 ([facility]) Systolic blood pressure 110 mm[Hg] 110 mm[Hg] e CW1 ([facility]) Diastolic blood pressure 82 mm[Hg] 82 mm[Hg] eCW1 ([facility]) Body weight 129 [lb_av] 129 [lb_av] eCW1 ([facility]) Systolic blood pressure 110 mm[Hg] 110 mm[Hg] e CW1 ([facility]) Diastolic blood pressure 76 mm[Hg] 76 mm[Hg] eCW1 ([facility]) Body weight 124.6 [lb_av] 124.6 [lb_av] eCW1 ([facility]) Body weight 56.52 kg 56.52 kg eCW1 ([facility]) Body height 62 [in_i] 62 [in_i] eCW1 ([facility]) Body mass index (BMI) [Ratio] 22.79 kg/m2 22.79 kg/m2 eCW1 ([facility]) Systolic blood pressure 102 mm[Hg] 102 mm[Hg] e CW1 ([facility]) Diastolic blood pressure 80 mm[Hg] 80 mm[Hg] eCW1 ([facility]) Body weight 121.2 [lb_av] 121.2 [lb_av] eCW1 ([facility]) Body weight 54.98 kg 54.98 kg eCW1 ([facility]) Body height 62 [in_i] 62 [in_i] eCW1 ([facility]) Body mass index (BMI) [Ratio] 22.168 kg/m2 22.1 68 kg/m2 eCW1 ([facility]) Systolic blood pressure 112 mm[Hg] 112 mm[Hg] e CW1 ([facility]) Diastolic blood pressure 70 mm[Hg] 70 mm[Hg] eCW1 ([facility]) Body weight 124.6 [lb_av] 124.6 [lb_av] eCW1 ([facility]) Body weight 56.52 kg 56.52 kg eCW1 ([facility]) Body height 62 [in_i] 62 [in_i] eCW1 ([facility]) Body mass index (BMI) [Ratio] 22.79 kg/m2 22.79 kg/m2 W1 ([facility]) Systolic blood pressure 100 mm[Hg] 100 mm[Hg] e CW1 ([facility]) Diastolic blood pressure 70 mm[Hg] 70 mm[Hg] eCW1 ([facility]) Patient Treatment Plan of Care Planned Activity Planned Date Details Description Data Source (s) 28-0.8 MG 09/08/2020 12:00:00 AM EST eCW1 ([facility]) 28-0.8 MG 06/04/2020 12:00:00 AM EDT eC ([facility])
[2021-07-11 22:48] LABS: BASO % 0.4 % (0.0-1.0); EOS % 0.2 % (0.0-3.0); HEMATOCRIT 37.8 % (36.0-47.0); HEMOGLOBIN 12.3 g/dl (12.0-15.5); LYMPH # 0.9 10^3/uL (1.5-5.0); LYMPH % 17.1 % (24.0-44.0); MEAN CORPUSCULAR HEMOGLOBIN 29.4 pg (27.0-33.0); MEAN CORPUSCULAR HGB CONC 32.5 g/dl (32.0-36.5); MEAN CORPUSCULAR VOLUME 90.2 fl (80.0-96.0); MONO # 0.3 10^3/uL (0.0-0.8); MONO % 6.5 % (2.0-8.0); NEUTROPHILS # 3.8 10^3/uL (1.5-8.5); NEUTROPHILS % 75.4 % (36.0-66.0); PLATELET COUNT, AUTOMATED 161 10^3/uL (150-450); RED BLOOD COUNT 4.19 10^6/uL (4.00-5.40); WHITE BLOOD COUNT 5.1 10^3/uL (4.0-10.0)
[2021-07-11 23:19] LABS: ALBUMIN 3.5 GM/DL (3.2-5.2); ALT/SGPT 31 U/L (12-78); BILIRUBIN,DIRECT < 0.1 MG/DL (0.0-0.2); BILIRUBIN,TOTAL 0.3 MG/DL (0.2-1.0); BLOOD UREA NITROGEN 10 MG/DL (7-18); CALCIUM LEVEL 8.6 MG/DL (8.5-10.1); CARBON DIOXIDE LEVEL 26 MEQ/L (21-32); CHLORIDE LEVEL 104 MEQ/L (98-107); CREATININE FOR GFR 0.83 MG/DL (0.55-1.30); GLOMERULAR FILTRATION RATE > 60.0 (>60); GLUCOSE, FASTING 119 MG/DL (70-100); MAGNESIUM LEVEL 1.8 MG/DL (1.8-2.4); PHOSPHORUS LEVEL 2.5 MG/DL (2.5-4.9); POTASSIUM SERUM 4.1 MEQ/L (3.5-5.1); SODIUM LEVEL 137 MEQ/L (136-145); TOTAL PROTEIN 7.3 GM/DL (6.4-8.2)
[2021-07-11 23:21] LABS: HCG, SERUM QUALITATIVE NEGATIVE (NEGATIVE)
[2021-07-11] MEDS ORDERED: NS 1,000 ML IV ONE (23:25)
[2021-07-11 23:27] LABS: ABG HCO3 24.2 MEQ/L (22.0-26.0); ABG O2 SATURATION 98.4 % (95.0-99.0); ABG PARTIAL PRESSURE CO2 38.1 mmHg (35.0-45.0); ABG PARTIAL PRESSURE O2 119.2 mmHg (75.0-100.0); ABG STANDARD HCO3 24.5 MEQ/L (22.0-26.0); ABG TOTAL CO2 25.4 MEQ/L (22.0-29.0); ABG pH (ARTERIAL) 7.421 UNITS (7.350-7.450)
--- NOTE | 2021-07-11 23:50 | REPVR ---
PROCEDURE INFORMATION: Exam: CT Head Without Contrast Exam date and time: 07/11/2021 11:32 PM Age: 31 years old Clinical indication: Other: Seizure TECHNIQUE: Imaging protocol: Computed tomography of the head without contrast. Radiation optimization: All CT scans at this facility use at least one of these dose optimization techniques: automated exposure control; mA and/or kV adjustment per patient size (includes targeted exams where dose is matched to clinical indication); or iterative reconstruction. COMPARISON: No relevant prior studies available. FINDINGS: Brain: Normal. No hemorrhage. Unremarkable white matter. No mass effect. Cerebral ventricles: No ventriculomegaly. Paranasal sinuses: Visualized sinuses are unremarkable. No fluid levels. Mastoid air cells: Visualized mastoid air cells are well aerated. Bones/joints: Unremarkable. No acute fracture. Soft tissues: There are scalp sebaceous cysts measuring up to 1.5 cm. IMPRESSION: No acute intracranial abnormality. Electronically signed by: Dillon Bowens On 07/11/2021 23:49:55 PM
--- OUTSIDE RECORDS SUMMARY | 2021-07-12 00:39 | CCD ---
Author Author [facility] Organization [facility] Address Unknown Phone Unavailable Care Team Providers Care Light Rail Vehicle Operator Name Role Phone Lyssa Parry NP Unavailable [...] Unavailable Unavailable ARYA, ANNABEL PA Unavailable Unavailable AYRA, ANNABEL PA Unavailable Unavailable ARYA, ANNABEL PA Unavailable Unavailable ARYA, ANNABEL PA Unavailable Unavailable ARAY, ANNABEL PA Unavailable Unavailable ARYA, ANNABEL PA [...] is protected by Article 27-F of the [facility] Public Health law. If you continue you may have access to information: Regarding HIV / AIDS; Provided by facilities licensed or operated by the [facility] Office of Mental Health; or Provided by the [facility] Office for People With Developmental Disabilities. If such information is present, then the following [facility] mandated warning applies: This information has been [...] law may result in a fine or custodial sentence or both. A general authorization for the release of medical or other information is NOT sufficient authorization for further disc losure. Encounters Encounter Providers Location Date Indications Data Source(s ) Outpatient Attender: Lyssa Parry NP 04/2021 03:11:03 PM EST - 07/07/2021 04:46:07 PM EST [facility] ([facility] ) Outpatient Attender: ANNABEL armstrong 05/28/2021 02:20:00 PM EDT MEDENT ([facility]) (WC ESTOB) [facility] OB [address] [place] [address] 10/30/2020 12:00:00 AM EST eCW1 ([facility]) Unknown [address] [facility] [address] 10/13/2020 12:00:00 AM EST eCW1 ([facility]) ( ESTOB) [facility] Est OB [address] [place] [address] 10/01/2020 12:00:00 AM EST eCW1 ([facility]) (WC ESTOB) enter Est OB [address] [place] [address] 09/26/2020 12:00:00 AM EST eCW1 ([facility]) (WC ESTOB) enter Est OB [address] [place] [address] 09/08/2020 12:00:00 AM EST eCW1 ([facility]) (WC ESTOB) [facility] Est OB [address] [place] [address] 07/31/2020 12:00:00 AM EST eCW1 ([facility]) ( ESTOB) enter Est OB [address] [place] [address] 07/11/2020 12:00:00 AM EST eCW1 ([facility]) ( ESTOB) [facility] Est OB [address] [place] [address] 06/24/2020 12:00:00 AM EDT eCW1 ([facility]) [place] [address] [facility] [address] 06/19/2020 12:00:00 AM EDT eCW1 ([facility]) ( NEWOB) [facility] New OB Visit [address] [place] [address] 06/04/2020 12:00:00 AM EDT eCW1 ([facility]) Immunizations Vaccine Date Status Description Data Source(s) COVID-19 VACCINE Moderna 02/24/2021 12:00:00 AM EDT completed [place] Vaccine Series Complete: YESThis Data wa s Submitted to [facility] [employer]. COVID-19 VACCINE Moderna 01/27/2021 12:00:00 AM EDT completed [place] Vaccine Series Complete: NOThis Data was Submitted to [facility] [employer]. Medications Medication Brand Name Start Date Product Form Dose Route Admi nistrative Instructions Pharmacy Instructions Status Indications Reaction Description Data Source(s) NITROFURANTOIN, MACROCRYSTALS 25 MG / Ni trofurantoin, Monohydrate 75 MG Oral Capsule [Macrobid] Macrobid 05/28/2021 12:00:00 AM EDT ORAL active MED[facility] ([facility]) No Active Medications 05/28/2021 12:00:00 AM EDT completed [facility] ([facility]) Phenazopyridine hydrochloride 200 MG Oral Tablet [Pyridium] Pyridium 05/28/2021 12:00:00 AM EDT ORAL completed [facility] ([facility]) 28-0.8 MG 28-0.8 MG 09/08/2020 12:00:00 AM EST 1.0 {tablet} active 28-0.8 MG e CW1 ([facility]) 28-0.8 MG 28-0.8 MG 09/08/2020 12:00:00 AM EST 1.0 {tablet} active 28-0.8 MG e CW1 ([facility]) 28-0.8 MG 28-0.8 MG 09/08/2020 12:00:00 AM EST 1.0 {tablet} active 28-0.8 MG e CW1 ([facility]) 28-0.8 MG 28-0.8 MG 09/08/2020 12:00:00 AM EST 1.0 {tablet} active 28-0.8 MG e CW1 ([facility]) 28-0.8 MG 28-0.8 MG 09/08/2020 12:00:00 AM EST 1.0 {tablet} active 28-0.8 MG e CW1 ([facility]) 28-0.8 MG 28-0.8 MG 06/04/2020 12:00:00 AM EDT 1.0 {tablet} active 28-0.8 MG e CW1 ([facility]) 28-0.8 MG 28-0.8 MG 06/04/2020 12:00:00 AM EDT 1.0 {tablet} suspended 28-0.8 MG e CW1 ([facility]) 28-0.8 MG 28-0.8 MG 06/04/2020 12:00:00 AM EDT 1.0 {tablet} suspended 28-0.8 MG e CW1 ([facility]) 28-0.8 MG 28-0.8 MG 06/04/2020 12:00:00 AM EDT 1.0 {tablet} active 28-0.8 MG e CW1 ([facility]) 28-0.8 MG 28-0.8 MG 06/04/2020 12:00:00 AM EDT 1.0 {tablet} suspended 28-0.8 MG e CW1 ([facility]) 28-0.8 MG 28-0.8 MG 06/04/2020 12:00:00 AM EDT 1.0 {tablet} suspended 28-0.8 MG e CW1 ([facility]) 28-0.8 MG 28-0.8 MG 06/04/2020 12:00:00 AM EDT 1.0 {tablet} active 28-0.8 MG e CW1 ([facility]) 28-0.8 MG 28-0.8 MG 06/04/2020 12:00:00 AM EDT 1.0 {tablet} active 28-0.8 MG e CW1 ([facility]) 28-0.8 MG 28-0.8 MG 06/04/2020 12:00:00 AM EDT 1.0 {tablet} active 28-0.8 MG e CW1 ([facility]) 28-0.8 MG 28-0.8 MG 06/04/2020 12:00:00 AM EDT 1.0 {tablet} active 28-0.8 MG e CW1 ([facility]) Insurance Providers Payer name Policy type / Coverage type Policy ID Covered democrat ID Covered democrat's relationship to mclean Policy [employer] Plan Information [employer] [id number] Self [id number] [id number] SP [id number] [facility] [id number] SP [id number] BC BS TRIGON [id number] SP [id number] EMEDNY [id number] SP [id number] [employer] EPALS [id number] SP [id number] O UNAVAILABLE UNAVAILA BLE [employer] EPALS O [id number] S [id number] Problems, Conditions, and Diagnoses Code Display Name Description Problem Type Effective Dates Data Source(s) Z34.80 care Supervision of other normal P grupo 06/04/2020 12:00:00 AM EDT eCW1 ([facility]) Surgeries/Procedures Procedure Description Date Indications Data Source(s) OFFICE OUTPATIENT NEW 30 MINUTES 05/28/2021 12:00:00 A M EDT [facility] ([facility]) Results ID Date Data Source [id number] 05/28/2021 05:18:00 PM EDT [facility] ([facility]) Name Value Range Interpretation Code Description Data Caitlyn rce(s) Supporting Document(s) Bacteria identified in Urine by Culture Laboratory test result [facility] ([facility]) Rx Macrobid ID Date Data Source CHLAMYDIA & GC DNA PROBES 06/24/2020 12:00:00 AM EDT eCW1 ([facility]) Name Value Range Interpretation Code Description Data Caitlyn rce(s) Supporting Document(s) Negative Negative eCW1 ([facility]) Negative Negative eCW1 ([facility]) Procedure Social History Code Duration Value Status Description Data Source(s ) Smoking 05/28/2021 12:00:00 AM EDT Patient has never smoked co mpleted Patient has never smoked [facility] ([facility]) Smoking 10/30/2020 12:00:00 AM EST Never Smoker completed Never S moker eCW1 ([facility]) Smoking 10/01/2020 12:00:00 AM EST Never Smoker completed Never S moker eCW1 ([facility]) Smoking 10/01/2020 12:00:00 AM EST Never Smoker completed Never S moker eCW1 ([facility]) Smoking 10/01/2020 12:00:00 AM EST Never Smoker completed Never S moker eCW1 ([facility]) Smoking 09/17/2020 12:00:00 AM EST Never Smoker completed Never S moker eCW1 ([facility]) Smoking 07/21/2020 12:00:00 AM EST Never Smoker completed Never S moker eCW1 ([facility]) Smoking 07/21/2020 12:00:00 AM EST Never Smoker completed Never S moker eCW1 ([facility]) Smoking 06/30/2020 12:00:00 AM EST Never Smoker completed Never S moker eCW1 ([facility]) Smoking 06/30/2020 12:00:00 AM EST Never Smoker completed Never S moker eCW1 ([facility]) Smoking 06/18/2020 12:00:00 AM EDT Never Smoker completed Never S moker eCW1 ([facility]) Vital Signs ID Date Data Source UNK Name Value Range Interpretation Code Description Data Source(s) Systolic blood pressure 114 mm[Hg] 114 mm[Hg] M EDENT ([facility]) Diastolic blood pressure 83 mm[Hg] 83 mm[Hg] MED[facility] ([facility]) Heart rate 97 /min 97 /min MED[facility] ([facility]) Respiratory rate 18 /min 18 /min [facility] ( [facility]) Oxygen saturation in Arterial blood by Pulse oximetry 98 % 98 % [facility] ([facility], [facility]) Body temperature 98.2 [degF] 98.2 [degF] MED[facility] ([facility]) Body weight 119.4 [lb_av] 119.4 [lb_av] W1 ([facility]) Body height 62 [in_i] 62 [in_i] W1 ([facility]) Body mass index (BMI) [Ratio] 21.84 kg/m2 21.84 kg/m2 [facility] ([facility]) Systolic blood pressure 110 mm[Hg] 110 mm[Hg] e CW1 ([facility]) Diastolic blood pressure 70 mm[Hg] 70 mm[Hg] eCW1 ([facility]) Body weight 130.4 [lb_av] 130.4 [lb_av] eCW1 ([facility]) Body weight 59.15 kg 59.15 kg eCW1 ([facility]) Body height 62 [in_i] 62 [in_i] eCW1 ([facility]) Body mass index (BMI) [Ratio] 23.85 kg/m2 23.85 kg/m2 eCW1 ([facility]) Systolic blood pressure 110 mm[Hg] 110 mm[Hg] e CW1 ([facility]) Diastolic blood pressure 80 mm[Hg] 80 mm[Hg] eCW1 ([facility]) Body weight 129 [lb_av] 129 [lb_av] eCW1 ([facility]) Body weight 58.51 kg 58.51 kg eCW1 ([facility]) Body height 62 [in_i] 62 [in_i] eCW1 ([facility]) Body mass index (BMI) [Ratio] 23.594 kg/m2 23.5 94 kg/m2 eCW1 ([facility]) Systolic blood pressure 110 mm[Hg] 110 mm[Hg] e CW1 ([facility]) Diastolic blood pressure 82 mm[Hg] 82 mm[Hg] eCW1 ([facility]) Body weight 129 [lb_av] 129 [lb_av] eCW1 ([facility]) Systolic blood pressure 110 mm[Hg] 110 mm[Hg] e CW1 ([facility]) Diastolic blood pressure 76 mm[Hg] 76 mm[Hg] eCW1 ([facility]) Body weight 124.6 [lb_av] 124.6 [lb_av] eCW1 ([facility]) Body weight 56.52 kg 56.52 kg eCW1 ([facility]) Body height 62 [in_i] 62 [in_i] eCW1 ([facility]) Body mass index (BMI) [Ratio] 22.79 kg/m2 22.79 kg/m2 eCW1 ([facility]) Systolic blood pressure 102 mm[Hg] 102 mm[Hg] e CW1 ([facility]) Diastolic blood pressure 80 mm[Hg] 80 mm[Hg] eCW1 ([facility]) Body weight 121.2 [lb_av] 121.2 [lb_av] eCW1 ([facility]) Body weight 54.98 kg 54.98 kg eCW1 ([facility]) Body height 62 [in_i] 62 [in_i] eCW1 ([facility]) Body mass index (BMI) [Ratio] 22.168 kg/m2 22.1 68 kg/m2 eCW1 ([facility]) Systolic blood pressure 112 mm[Hg] 112 mm[Hg] e CW1 ([facility]) Diastolic blood pressure 70 mm[Hg] 70 mm[Hg] eCW1 ([facility]) Body weight 124.6 [lb_av] 124.6 [lb_av] eCW1 ([facility]) Body weight 56.52 kg 56.52 kg eCW1 ([facility]) Body height 62 [in_i] 62 [in_i] eCW1 ([facility]) Body mass index (BMI) [Ratio] 22.79 kg/m2 22.79 kg/m2 W1 ([facility]) Systolic blood pressure 100 mm[Hg] 100 mm[Hg] e CW1 ([facility]) Diastolic blood pressure 70 mm[Hg] 70 mm[Hg] eCW1 ([facility]) Patient Treatment Plan of Care Planned Activity Planned Date Details Description Data Source (s) 28-0.8 MG 09/08/2020 12:00:00 AM EST eCW1 ([facility]) 28-0.8 MG 06/04/2020 12:00:00 AM EDT eC ([facility])
[2021-07-12 01:12] LABS: AMPHETAMINES LEVEL URINE NEGATIVE (NEGATIVE); BARBITURATES URINE NEGATIVE (NEGATIVE); BENZODIAZEPINES URINE NEGATIVE (NEGATIVE); CANNABINOIDS URINE NEGATIVE (NEGATIVE); COCAINE METABOLITE URINE NEGATIVE (NEGATIVE); METHADONE URINE NEGATIVE (NEGATIVE); OPIATES URINE NEGATIVE (NEGATIVE); PHENCYCLIDINE URINE NEGATIVE (NEGATIVE)
[2021-07-12] MEDS ORDERED: DEPA250T32 PO (01:58)
[2021-07-12] MEDS ORDERED: FOLI1TAB11 PO (01:58)
[2021-07-12 02:00] VITALS: BP 113/70
[2021-07-12] MEDS ORDERED: DIVALPROEX 250 MG TAB PO ONE (02:00)
== END 2021-07-12 02:24 | disposition home or self-care (01) ==
LOC: M ED 22:19
DX: R56.9 Unspecified convulsions (principal)

== ENCOUNTER → 2021-09-23 | Outpatient (REF) | payer OTHER ==
[~2021-09-23] MED LIST changes: +DEPA250T32 PO; +FOLI1TAB11 PO
== END ==
LOC: M LAB REF 16:21
PROVIDERS: ATTEND Surgery
DX: L72.3 Sebaceous cyst (principal)

== ENCOUNTER → 2021-11-17 | Outpatient (CLI) | payer OTHER ==
[2021-11-17 12:19] LABS: HEMATOCRIT 41.6 % (36.0-47.0); HEMOGLOBIN 13.6 g/dl (12.0-15.5); MEAN CORPUSCULAR HEMOGLOBIN 30.4 pg (27.0-33.0); MEAN CORPUSCULAR HGB CONC 32.7 g/dl (32.0-36.5); MEAN CORPUSCULAR VOLUME 93.1 fl (80.0-96.0); PLATELET COUNT, AUTOMATED 154 10^3/uL (150-450); RED BLOOD COUNT 4.47 10^6/uL (4.00-5.40); WHITE BLOOD COUNT 5.7 10^3/uL (4.0-10.0)
[2021-11-17 12:52] LABS: ALBUMIN 3.7 GM/DL (3.2-5.2); ALT/SGPT 19 U/L (12-78); BILIRUBIN,TOTAL 0.4 MG/DL (0.2-1.0); BLOOD UREA NITROGEN 9 MG/DL (7-18); CALCIUM LEVEL 8.8 MG/DL (8.5-10.1); CARBON DIOXIDE LEVEL 28 MEQ/L (21-32); CHLORIDE LEVEL 108 MEQ/L (98-107); CREATININE FOR GFR 0.81 MG/DL (0.55-1.30); FREE T4 0.98 NG/DL (0.76-1.46); GLOMERULAR FILTRATION RATE > 60.0 (>60); GLUCOSE, FASTING 88 MG/DL (70-100); POTASSIUM SERUM 4.3 MEQ/L (3.5-5.1); SODIUM LEVEL 139 MEQ/L (136-145); TOTAL PROTEIN 7.5 GM/DL (6.4-8.2); VALPROIC ACID (DEPAKOTE) 97.5 UG/ML (50.0-100.0)
== END ==
LOC: M LAB 11:30
PROVIDERS: ATTEND Nurse Practitioner Family
DX: R56.9 Unspecified convulsions (principal); R53.83 Other fatigue

== ENCOUNTER → 2021-11-30 | Outpatient (REF) | payer OTHER ==
[2021-11-30 11:45] LABS: HEMATOCRIT 40.8 % (36.0-47.0); HEMOGLOBIN 13.8 g/dl (12.0-15.5); MEAN CORPUSCULAR HEMOGLOBIN 31.5 pg (27.0-33.0); MEAN CORPUSCULAR HGB CONC 33.8 g/dl (32.0-36.5); MEAN CORPUSCULAR VOLUME 93.2 fl (80.0-96.0); PLATELET COUNT, AUTOMATED 182 10^3/uL (150-450); RED BLOOD COUNT 4.38 10^6/uL (4.00-5.40); WHITE BLOOD COUNT 5.2 10^3/uL (4.0-10.0)
[2021-11-30 12:13] LABS: ALBUMIN 3.7 GM/DL (3.2-5.2); ALT/SGPT 24 U/L (12-78); BILIRUBIN,TOTAL 0.4 MG/DL (0.2-1.0); BLOOD UREA NITROGEN 9 MG/DL (7-18); CALCIUM LEVEL 8.9 MG/DL (8.5-10.1); CARBON DIOXIDE LEVEL 32 MEQ/L (21-32); CHLORIDE LEVEL 108 MEQ/L (98-107); CREATININE FOR GFR 0.84 MG/DL (0.55-1.30); GLOMERULAR FILTRATION RATE > 60.0 (>60); GLUCOSE, FASTING 90 MG/DL (70-100); HCG, SERUM QUALITATIVE NEGATIVE (NEGATIVE); POTASSIUM SERUM 3.8 MEQ/L (3.5-5.1); SODIUM LEVEL 142 MEQ/L (136-145); TOTAL PROTEIN 7.6 GM/DL (6.4-8.2)
== END ==
LOC: M SFHCCLAY 08:28
PROVIDERS: ATTEND Nurse Practitioner Family
DX: Z30.013 Encounter for initial prescription of injectable contraceptive (principal); R56.9 Unspecified convulsions

== ENCOUNTER → 2021-12-09 | Outpatient (REF) | payer OTHER | LOC: M LAB REF 13:50 | PROVIDERS: ATTEND Surgery | DX: L72.3 Sebaceous cyst (principal) ==

== ENCOUNTER → 2021-12-09 | Outpatient (REF) | payer OTHER ==
[2021-12-10 15:25] LABS: GC DNA AMPLIFICATION NEGATIVE (NEGATIVE)
== END ==
LOC: M SFHCCLAY 16:12
PROVIDERS: ATTEND Nurse Practitioner Family
DX: Z91.89 Other specified personal risk factors, not elsewhere classified (principal)